=== PATIENT | male | born 1995 | race Asian ===

== ENCOUNTER 2019-11-10 19:01 | Emergency (ER) | payer OTHER ==
[~2019-11-10] VITALS: Ht 188 cm; Wt 81.6 kg
[2019-11-10 19:10] VITALS: BP 124/77; TEMP 97.9
== END 2019-11-10 20:34 | disposition home or self-care (01) ==
LOC: ED 19:01
DX: K02.9 Dental caries, unspecified (principal); K04.7 Periapical abscess without sinus
CPT/HCPCS: 96372; 99282; J1885